=== PATIENT | male | born 1960 | race Caucasian/White ===

== ENCOUNTER → 2020-09-04 | Outpatient (CLI) | payer BC | END | disposition home or self-care (01) | LOC: ORTHO 00:08 | PROVIDERS: ATTEND Orthopaedic Surgery | DX: M25.511 Pain in right shoulder (principal) ==

== ENCOUNTER → 2021-09-17 | Outpatient (CLI) | payer BC | END | disposition home or self-care (01) | LOC: ORTHO 01:49 → RAD 14:09 → ORTHO 14:16 | PROVIDERS: ATTEND Orthopaedic Surgery | DX: M76.892 Other specified enthesopathies of left lower limb, excluding foot (principal); M25.562 Pain in left knee ==

== ENCOUNTER → 2023-03-13 | Outpatient (CLI) | payer BC | END | disposition home or self-care (01) | LOC: ORTHO 01:41 | PROVIDERS: ATTEND Orthopaedic Surgery | DX: M79.641 Pain in right hand (principal) ==